=== PATIENT | male | born 1965 | race Caucasian/White ===

== ENCOUNTER 2021-02-15 11:53 | Emergency (ER) | payer OTHER ==
[~2021-02-15] VITALS: Ht 180.3 cm; Wt 86.4 kg
--- NOTE | 2021-02-15 13:19 | RAD ---
PQRS Compliance Statement: One or more of the following individualized dose reduction techniques were utilized for this examinat ion: 1. Automated exposure control 2. Adjustment of the mA and/or kV according to patient size 3. Use of iterative reconstruction technique CT LUMBAR SPINE WO 02/15/2021 12:58 PM Indication: Lower back pain, loss of bowel. Lifting weights injury yesterday. COMPARISON: None available. TECHNIQUE: Multiple axial CT images of the lumbar spine were obtained without intravenous contrast. C oronal and sagittal reformats are provided. FINDINGS: There are 5 nonrib-bearing lumbar type vertebral bodies. Schmorl's nodes are identified involving the vertex of T12, L1, L2, L3 and L4 without significant height loss. No acute fracture. 2 mm retrolisth esis of L2 on L3. No acute fracture is identified. Abdominal aorta is normal in caliber. No suspiciou s retroperitoneal abnormality is identified. Visualized portions of the sacrum appear intact. L1-L2: Disc bulge asymmetric to the left. Mild facet arthropathy. Mild left neuroforaminal stenosis.. No significant spinal canal stenosis. L2-3: There is a circumferential disc bulge. Mild facet arthropathy. Mild to moderate bilateral neuro foraminal stenosis. Mild spinal canal stenosis. L3-L4: There is a circumferential disc bulge. Mild to moderate facet arthropathy. Moderate bilateral neuroforaminal stenosis. Mild spinal canal stenosis, exacerbated by epidural lipomatosis. L4-L5: There is a circumferential disc bulge with left central disc protrusion. Moderate left and mod erate facet arthropathy. Moderate to severe left and moderate right neuroforaminal stenosis. Mild to moderate spinal canal stenosis. L5-S1: Mild disc bulge. Mild facet arthropathy, left or the right. Mild neuroforaminal stenosis. No s ignificant spinal canal stenosis. IMPRESSION: No acute fracture of the lumbar spine. Mild lumbar spondylosis as detailed above. Electronically signed by: Yasmine Daniel MD (02/15/2021 1:16 PM) [id number]
--- NOTE | 2021-02-15 13:32 | PHYS DOC ---
Past History Additional Past Medical Histor: urinary frequency Past Surgical History: Appendectomy General Adult EDM: Chief Complaint: BACK INJURY HPI: HPI: Patient is a 55-year-old male presents with lower back pain. Patient states yesterday he was at the gym when he did a lift and had a lower back pain. Patient states he took some Tylenol earlier today with little relief. Pain is exacerbated by walking and going from a sitting to standing position. Pain improves with sitting still. Patient states "this morning I was unable to get to the bathroom in time and had incontinence of stool". Patient denies urinary retention. Denies saddle anesthesia. Review of Systems: Review of Systems: Constitutional: Denies fever or chills Eyes: Denies change in visual acuity HENT: Denies nasal congestion or sore throat Respiratory: Denies cough or shortness of breath Cardiovascular: Denies chest pain or edema GI: Denies abdominal pain, nausea, vomiting, bloody stools or diarrhea : Denies dysuria Musculoskeletal: Reports lower back pain Integument: Denies rash Neurologic: Denies headache, focal weakness or sensory changes Endocrine: Denies polyuria or polydipsia Lymphatic: Denies swollen glands Psychiatric: Denies depression or anxiety Physical Exam: PE: Constitutional: Well developed, well nourished, no acute distress, non-toxic appearance. [] HENT: Normocephalic, atraumatic, bilateral external ears normal, oropharynx moist, no oral exudates, nose normal. [] Eyes: PERRLA, EOMI, conjunctiva normal, no discharge. [] Neck: Normal range of motion, no tenderness, supple, no stridor. [] Cardiovascular:Heart rate regular rhythm, no murmur [] Lungs & Thorax: Bilateral breath sounds clear to auscultation [] Abdomen: Bowel sounds normal, soft, no tenderness, no masses, no pulsatile masses. [] Skin: Warm, dry, no erythema, no rash. [] Back: Lower back tenderness, no CVA tenderness. [] Extremities: No tenderness, no cyanosis, no clubbing, ROM intact, no edema. [] Neurologic: Alert and oriented X 3, normal motor function, normal sensory function, no focal deficits noted. [] Psychologic: Affect normal, judgement normal, mood normal. [] Current Patient Data: Vital Signs: Vital Signs Date Time Temp Pulse Resp B/P (MAP) Pulse Ox O2 Delivery O2 Flow Rate FiO2 02/15/21 12:11 97.5 73 16 125/74 98 Room Air EKG: EKG: [] Radiology/Procedures: Radiology/Procedures: []PQRS Compliance Statement: One or more of the following individualized dose reduction techniques were utilized for this examination: 1. Automated exposure control 2. Adjustment of the mA and/or kV according to patient size 3. Use of iterative reconstruction technique CT LUMBAR SPINE WO 02/15/2021 12:58 PM Indication: Lower back pain, loss of bowel. Lifting weights injury yesterday. COMPARISON: None available. TECHNIQUE: Multiple axial CT images of the lumbar spine were obtained without intravenous contrast. Coronal and sagittal reformats are provided. FINDINGS: There are 5 nonrib-bearing lumbar type vertebral bodies. Schmorl's nodes are identified involving the vertex of T12, L1, L2, L3 and L4 without significant height loss. No acute fracture. 2 mm retrolisthesis of L2 on L3. No acute fracture is identified. Abdominal aorta is normal in caliber. No suspicious retroperitoneal abnormality is identified. Visualized portions of the sacrum appear intact. L1-L2: Disc bulge asymmetric to the left. Mild facet arthropathy. Mild left neuroforaminal stenosis.. No significant spinal canal stenosis. L2-3: There is a circumferential disc bulge. Mild facet arthropathy. Mild to moderate bilateral neuroforaminal stenosis. Mild spinal canal stenosis. L3-L4: There is a circumferential disc bulge. Mild to moderate facet arthropathy. Moderate bilateral neuroforaminal stenosis. Mild spinal canal stenosis, exacerbated by epidural lipomatosis. L4-L5: There is a circumferential disc bulge with left central disc protrusion. Moderate left and moderate facet arthropathy. Moderate to severe left and moderate right neuroforaminal stenosis. Mild to moderate spinal canal stenosis. L5-S1: Mild disc bulge. Mild facet arthropathy, left or the right. Mild neuroforaminal stenosis. No significant spinal canal stenosis. IMPRESSION: No acute fracture of the lumbar spine. Mild lumbar spondylosis as detailed above. Electronically signed by: Yasmine Daniel MD (02/15/2021 1:16 PM) [id number] Heart Score: C/O Chest Pain: No Risk Factors: Risk Factors: DM, Current or recent (<one month) smoker, HTN, HLP, family history of CAD, obesity. Risk Scores: Score 0 - 3: 2.5% MACE over next 6 weeks - Discharge Home Score 4 - 6: 20.3% MACE over next 6 weeks - Admit for Clinical Observation Score 7 - 10: 72.7% MACE over next 6 weeks - Early Invasive Strategies Course & Med Decision Making: Course & Med Decision Making Pertinent Labs and Imaging studies reviewed. (See chart for details) [] 55-year-old male who presents with lower back pain after doing a lift yesterday at the gym. Patient denies saddle anesthesia. Reports he had incontinence of bowel this morning. CT lumbar negative for any acute abnormalities. Appropriate sphincter tone, score of 3. Patient given IM Toradol, Flexeril. Patient sent home with a prescription for Flexeril as well. Advised patient to call PCP and make a follow-up appointment. Important to try and rest and use ice to area of discomfort. Ibuprofen and Tylenol at home as well. Patient given strict return precautions. Patient is appreciative and okay with discharge plan. Patient is hemodynamically stable upon disposition Dragon Disclaimer: Dragdiana Disclaimer: This electronic medical record was generated, in whole or in part, using a voice recognition dictation system. Departure Departure: Impression: Primary Impression: Back injury Qualified Codes: S39.92XA - Unspecified injury of lower back, initial encounter Disposition: HOME / SELF CARE / HOMELESS Condition: STABLE Referrals: MAVIS SAMUEL (PCP) Patient Instructions: Back Injury Prevention, [id number] Additional Instructions: You are seen in the emergency room for lower back pain after injuring it while working out yesterday. CT of your lower back was negative for any acute abnormalities. Rectal exam was unremarkable. Giving you a prescription for Flexeril to take at home. You can also take ibuprofen and Tylenol. Is imp ortant to rest and use ice to the areas of discomfort. Please call your PCP make a follow-up appointment. Return to emergency room if you have worsening symptoms or concerns. EMERGENCY DEPARTMENT GENERAL DISCHARGE INSTRUCTIONS Thank you for coming to [facility] (ED) today and trusting us with you care. We trust that you had a positivie experience in our Emergency Department. If you wish to speak to the department management, you may call the director at [phone]. YOUR FOLLOW UP INSTRUCTIONS ARE FOLLOWS: 1. Do you have a private Doctor? If you do not have a private doctor, please ask for a resource list of physicians or clinics that may be able to assist you with follow up care. 2. The Emergency Physician has interpreted your x-rays. The X-Ray specialist will also review them. If there is a change in the findings, you will be notified in 48 hours when at all possible. 3. A lab test or culture has been done, your results will be reviewed and you will be notified if you need a change in treatment. ADDITIONAL INSTRUCTIONS AND INFORMATION: 1. Your care today has been supervised by a physician who is specially trained in emergency care. Many problems require more than one evaluation for a complete diagnosis and treatment. We recommend that you schedule your follow up appointment as recommended to ensure complete treatment of you illness or injury. If you are unable to obtain follow up care and continue to have a problem, or if your condition worsens, we recommend that you return to the ED. 2. We are not able to safely determine your condition over the phone nor are we able to give sound medical advice over the phone. For these safety reasons, if you call for medical advice we will ask you to come to the ED for further evaluation. 3. If you have any questions regarding these discharge instructions please call the ED at [phone]. SAFETY INFORMATION: In the interest of safety, wellness, and injury prevention; we encourage you to wear your sealbelt, if you smoke; quite smoking, and we encourage family to use a protective helmet for bicycling and other sporting events that present an increased risk for head injury. IF YOUR SYMPTOMS WORSEN OR NEW SYMPTOMS DEVELOP, OR YOU HAVE CONCERNS ABOUT YOUR CONDITION; OR IF YOUR CONDITION WORSENS WHILE YOU ARE WAITING FOR YOUR FOLLOW UP APPOINTMENT; EITHER CONTACT YOUR PRIMARY CARE DOCTOR, THE PHYSICIAN WHOSE NAME AND NUMBER YOU WERE GIVEN, OR RETURN TO THE ED IMMEDIATELY. Scripts Cyclobenzaprine Hcl (CYCLOBENZAPRINE HCL) 10 Mg Tablet 1 TAB PO TID PRN for PAIN for 10 Days, #30 TAB 0 Refills Prov: KYLAH SALMON APRN 02/15/21 KYLAH SALMON APRN Feb 15, 2021 13:32
[2021-02-15] MEDS ORDERED: CYCL-331 PO (13:48)
[2021-02-15] MEDS ORDERED: CYCLOBENZAPRINE 10 MG TABLET. PO ONE (14:00)
[2021-02-15] MEDS ORDERED: KETOROLAC 15 MG/ML VIAL. IM ONE (14:00)
[2021-02-15 14:20] VITALS: BP 120/71
== END 2021-02-15 14:33 | disposition home or self-care (01) ==
LOC: ER 11:53
DX: S39.92XA Unspecified injury of lower back, initial encounter (principal); X50.1XXA Overexertion from prolonged static or awkward postures, initial encounter; Y93.89 Activity, other specified; Y92.89 Other specified places as the place of occurrence of the external cause; Y99.8 Other external cause status
CPT/HCPCS: 72131; 96372; 99284; J1885